=== PATIENT | female | born 1995 | race Caucasian/White ===

== ENCOUNTER 2016-10-08 17:35 | Observation (INO) | payer OTHER ==
[~2016-10-08] VITALS: Ht 157.5 cm; Wt 86.2 kg
[~2016-10-08 17:35] MED LIST: IBUPROFEN800 M1 PO; PRENATAL1 TA3 PO
[2016-10-08 19:28] LABS: ABSOLUTE BASOPHIL COUNT 0 /CUMM (0.0-0.2); ABSOLUTE EOSINOPHIL COUNT 0.1 /CUMM (0.0-0.7); ABSOLUTE GRANULOCYTE CT 10.7 /CUMM (1.4-6.5); ABSOLUTE LYMPH COUNT 0.9 /CUMM (1.2-3.4); ABSOLUTE MONOCYTE COUNT 0.8 /CUMM (0.10-0.60); BASOPHIL % 0.1 % (0.0-2.0); EOSINOPHIL % 0.4 % (0-5); MEAN CORPUSCULAR HGB 24.3 PG (27.0-31.0); MEAN CORPUSCULAR HGB CONC 32.1 G/DL (33.0-37.0); MEAN CORPUSCULAR VOLUME 75.7 FL (81.0-99.0); PLATELET COUNT 124 /CUMM (130-400); RBC DISTRIBUTION WIDTH 19.1 % (11.5-14.5); RED BLOOD CELL CT 3.83 /CUMM (4.20-5.40); WHITE BLOOD CELL COUNT 12.4 /CUMM (4.8-10.8)
[2016-10-08 19:34] LABS: GRANULOCYTE % 85.9 % (42.2-75.2)
== END 2016-10-09 09:52 ==
LOC: GNO 17:35
PROVIDERS: ADMIT Specialist
DX: O47.1 False labor at or after 37 completed weeks of gestation (principal); Z3A.37 37 weeks gestation of pregnancy
CPT/HCPCS: 96360; 96361; 96365; 96366; 96372; 96374; G0378; J0290; J2270

== ENCOUNTER 2016-10-21 08:23 | Inpatient (IN) | payer OTHER ==
[~2016-10-21] VITALS: Ht 157.5 cm; Wt 81.6 kg
[2016-10-21 08:36] VITALS: BP 130/77
--- NOTE | 2016-10-21 09:15 | History & Physical ---
General Information and HPI MD Statement: I have seen and personally examined TAM DAMON and documented this H&P. The patient is a 21 year old female at39[] weeks and [] days gestation who presented with a chief complaint of I want to be delivered []. 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 Medical History Neurological: NONE EENT: NONE Cardiovascular: NONE Respiratory: NONE Gastrointestinal: NONE Hepatic: NONE Renal: NONE Musculoskeletal: NONE Psychiatric: NONE Endocrine: NONE Blood Disorders: NONE Cancer(s): NONE 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) Surgical History Pertinent Surgical History: N Past Family/Social History Psychosocial History Smoking Status: Never Smoked Review of Systems Review of Systems: -13 point review of systems as stated in HPI Exam & Diagnostic Data Last 24 Hrs of Vital Signs/I&O Vital Signs Date Time Temp Pulse Resp B/P Pulse O2 O2 Flow FiO2 Ox Delivery Rate 10/21 0836 130/77 Intake & Output 10/21 1600 03/ 0800 03/06 0000 Intake Total Output Total Balance Patient 180 lb Weight Obstetric Exam Wgt Gained During : 12 Pelvimetry: 7LB 5OZ Dilation (cm): 2 Effacement (%): 80 Station: 0 Membranes: AROM Fluid: clear Fundal Height (cm): 39 Multiple Gestation? No Contractions: Q6 MINUTES Patient for Induction? Yes Ervin Score Ervin Score Response Value Cervix Position: anterior 2 Cervix Consistency: soft 2 Cervix Effacement: >80% 3 Cervix Dilation: 1-2 cm 1 Total 8 Physical Exam: Pleasant white female HEENT anicteric Lungs clear Abdomen soft estimated weight on 3500 g extremities +1 edema negative edema Homans Labs Blood Type & Rh: OPositive Antibody Screen: Negative Hct/Hgb & Platelets #1: 05/17/138 Hct/Hgb & Platelets #2: To late for care Rubella: Immune VDRL #1: Nonreactive VDRL #2: Nonreactive HbsAg: Negative HIV #1: Nonreactive HIV #2 Late for care 1 Hr P Group B Strep: Negative Initial Ultrasound: Normal Anatomy Ultrasound: Normal Genetic Testing: NORMAL Assessment/Plan As Ranked By This Provider Problem List: 1. Core Measures/Miscellaneous Venous Thromboembolism VTE Risk Factors: / VTE Contraindications: No Contraindications VTE Diagnosis: No Beta Niurka Is Beta Niurka a Home Med? No Antibiotics Is Patient on Antibiotics? No Attending MD Review Statement Attending Statement Attending MD Statement: examined this patient
[2016-10-21 10:33] LABS: ABSOLUTE BASOPHIL COUNT 0 /CUMM (0.0-0.2); ABSOLUTE EOSINOPHIL COUNT 0.1 /CUMM (0.0-0.7); ABSOLUTE GRANULOCYTE CT 8.9 /CUMM (1.4-6.5); ABSOLUTE LYMPH COUNT 1.6 /CUMM (1.2-3.4); ABSOLUTE MONOCYTE COUNT 0.5 /CUMM (0.10-0.60); BASOPHIL % 0.3 % (0.0-2.0); HEMATOCRIT 31.6 % (37-47); MEAN CORPUSCULAR HGB 24.1 PG (27.0-31.0); MEAN CORPUSCULAR VOLUME 75.5 FL (81.0-99.0); MEAN PLATELET VOLUME 9.6 FL (7.4-10.4); PLATELET COUNT 194 /CUMM (130-400); RBC DISTRIBUTION WIDTH 19.3 % (11.5-14.5); RED BLOOD CELL CT 4.18 /CUMM (4.20-5.40); WHITE BLOOD CELL COUNT 11.2 /CUMM (4.8-10.8)
--- NOTE | 2016-10-21 16:49 | Labor & Delivery Summary ---
Delivery Summary Vaginal Delivery: Vaginal: vertex Episiotomy/Lacerations: Type: 1ST DEGREE Repair: 30 Placenta: Placenta: spontanteous, normal, 3 vessel, nuchal cord (x_) (1) Anesthesia: block Additional Comments: WITH MECONIUM VIABLE FEMALE INFANT CAN x1.REDUCIBLE .3 VESSEL CORD .1ST DEGREE REPAIRED IN LAYERS WITH 30 .PLACENTA BY CCT INTACT .
--- NOTE | 2016-10-22 13:28 | PN- Post Delivery/GYN ---
Subjective Subjective: NO COMPLAINTS Objective Last 24 Hrs of Vital Signs/I&O NO COMPLAINTS Physical Exam: PE WELL BUILT WF ABD SOFT NT FUNDUS FIRM NT EXT-EDEMA Assessment/Plan Assessment/Plan ASSESS S/PNSVD PLANCONT POC
[2016-10-22 14:22] LABS: ABSOLUTE BASOPHIL COUNT 0 /CUMM (0.0-0.2); ABSOLUTE EOSINOPHIL COUNT 0.1 /CUMM (0.0-0.7); ABSOLUTE GRANULOCYTE CT 7.5 /CUMM (1.4-6.5); ABSOLUTE LYMPH COUNT 1.7 /CUMM (1.2-3.4); ABSOLUTE MONOCYTE COUNT 0.7 /CUMM (0.10-0.60); BASOPHIL % 0.2 % (0.0-2.0); EOSINOPHIL % 1.1 % (0-5); GRANULOCYTE % 74.7 % (42.2-75.2); HEMATOCRIT 31.8 % (37-47); MEAN CORPUSCULAR HGB 24.1 PG (27.0-31.0); MEAN CORPUSCULAR HGB CONC 31.6 G/DL (33.0-37.0); MEAN CORPUSCULAR VOLUME 76.3 FL (81.0-99.0); MEAN PLATELET VOLUME 9.2 FL (7.4-10.4); PLATELET COUNT 182 /CUMM (130-400); RBC DISTRIBUTION WIDTH 19.2 % (11.5-14.5); RED BLOOD CELL CT 4.16 /CUMM (4.20-5.40); WHITE BLOOD CELL COUNT 10.1 /CUMM (4.8-10.8)
== END 2016-10-23 10:17 | DRG 775 ==
LOC: GNO 08:23
PROVIDERS: ADMIT Specialist
PROC: 10E0XZZ Delivery of Products of Conception, External Approach (ICD-10-PCS; principal; 2016-10-21)
PROC: 0HQ9XZZ Repair Perineum Skin, External Approach (ICD-10-PCS; principal; 2016-10-21)
DX: O70.0 First degree perineal laceration during delivery (principal); Z37.0 Single live birth; Z3A.39 39 weeks gestation of pregnancy
CPT/HCPCS: GNOS; 36415; 81001; 88307; J1650; J7120